=== PATIENT | female | born 1980 | race Caucasian/White ===

== ENCOUNTER 2016-12-24 18:09 | Emergency (ER) | payer SELFPAY ==
--- NOTE | ~2016-12-24 | ER ---
PATIENT'S NAME: CHIOMA UPTON [facility] AGE: 36 Y [address] ROOM: [place] [id number] LOCATION: ED ADMIT DATE: 12/24/2016 ER/Outpatient Report DISCHARGE DATE: 12/24/2016 FAMILY PHYSICIAN: PHYSICIAN, NO ATTENDING PHYSICIAN: Juanita Watters Time of Arrival: 1809 hours. Time of Evaluation: 1835 hours. CHIEF COMPLAINT: Right foot and ankle injury and left toe injury. HISTORY OF PRESENT ILLNESS: This is a 36-year-old female, who presents to the ER, who states that she injured her feet today around 1:30 this afternoon. The patient states she was skydiving and the wind caught their parachute. She was strapped onto instructor dramatic arts as well. She states when they hit the ground, she hit her feet hard to the ground and injured both of her feet. She states that she bruised her second and third toes on her left foot. She states she is able to move them, but they are little bit tender. She denies other injury to her left foot. On her right lower extremity, she is complaining of some lateral pain to her ankle as well as pain to her right hallux and the ball of her foot. She states it is quite tender. She has been using some ibuprofen and Tylenol for her pain with minimal relief. She denies any back or pelvic pain. ALLERGIES: NO KNOWN ALLERGIES. MEDICATIONS: Ibuprofen. PAST MEDICAL HISTORY: She has had a previous right ankle surgery. SOCIAL HISTORY: Drinks a beer a day. Does smoke. REVIEW OF SYSTEMS: A 10-point review of system was completed and was negative with the exception of those discussed in the HPI. PHYSICAL EXAMINATION: VITAL SIGNS: Blood pressure is 134/81, pulse 84, respirations 16, temperature 97.7 degrees tympanically, and saturations 100% on room air. [place] Coma Score is 15. PATIENT'S NAME: CHIOMA UPTON [facility] AGE: 36 Y [address] ROOM: [place], [place] [address] LOCATION: [facility] ADMIT DATE: 12/24/2016 ER/Outpatient Report DISCHARGE DATE: 12/24/2016 FAMILY PHYSICIAN: PHYSICIAN, NO ATTENDING PHYSICIAN: Juanita Watters GENERAL: Alert, calm, well-developed, 36-year-old, in mild distress. EXTREMITIES: She does have some ecchymosis to her second and third toes on her left foot. There is some slight tenderness with palpation over there. She has no tenderness over her left third metatarsals or calcaneus, no ankle tenderness on her left side. On her right foot and ankle, she does have some swelling and tenderness over her right lateral malleolus. She also has exquisite tenderness over her right hallux and first metatarsal. She does have some swelling there as well. She has good pedal pulses bilaterally to lower extremities. She has full range of motion of all other limbs. LABORATORY DATA: Labs, none were done. X-rays ofthe bilateral feet were done. No fracture was seen into the left foot. Her right foot shows no obvious fracture, but we will have this over- read by Radiology. Her right ankle x-ray shows no obvious fracture. IMPRESSION: 1. Right foot and ankle injury. 2. Left second and third toe injuries. ASSESSMENT AND PLAN: We will place her right foot in CAM walking boot, and we will have her ambulate with crutches. I advised her to ice and elevate all the sore areas. We did give her 2 [place] here in the emergency room for her pain. She states that she does have [place] at home for severe pain as well. We will do ibuprofen as needed, and she should follow up with her primary care physician or orthopedic for followup care. The patient understands and agrees with care. IRENE GUIDRY PA-C FOR MD ZAIDA GONZALEZ/char /[id number] d: 12/24/16 2359 t: 01/01/17 1838, OUTPATIENT REPORT
== END 2016-12-24 19:53 | disposition disaster alternative care site (69) ==
LOC: GMED 18:09
DX: S90.122A Contusion of left lesser toe(s) without damage to nail, initial encounter (principal); S99.921A Unspecified injury of right foot, initial encounter; S99.911A Unspecified injury of right ankle, initial encounter; F17.200 Nicotine dependence, unspecified, uncomplicated; Z98.890 Other specified postprocedural states; Y30.XXXA Falling, jumping or pushed from a high place, undetermined intent, initial encounter; Y93.39 Activity, other involving climbing, rappelling and jumping off; Y99.8 Other external cause status

== ENCOUNTER 2017-04-12 15:44 | Emergency (ER) | payer BC ==
--- NOTE | ~2017-04-12 | ER ---
PATIENT'S NAME: CHIOMA UPTON [facility] AGE: 37 Y [address] ROOM: [place] [address] LOCATION: [facility] ADMIT DATE: 04/12/2017 ER/Outpatient Report DISCHARGE DATE: 04/12/2017 FAMILY PHYSICIAN: PHYSICIAN, NO ATTENDING PHYSICIAN: Dillon Chopra Time of Arrival: 1550. Time of Evaluation: 1558. CHIEF COMPLAINT: Right lower quadrant abdominal pain. HISTORY OF PRESENT ILLNESS: The patient is a 37-year-old female who presents to the emergency department today with a chief complaint of right lower quadrant abdominal pain. She reports this started about 4 hours prior to arrival. She is currently undergoing her menses. Pain is currently 10/10 in severity. Denies any nausea or vomiting. No diarrhea or constipation. No fevers or chills. No urinary frequency, urgency, or painful urination. Last bowel movement was yesterday. No history of similar episodes in the past. PAST MEDICAL HISTORY: None. PAST SURGICAL HISTORY: Right ankle, tubal ligation, and cholecystectomy. SOCIAL HISTORY: The patient smokes 10 cigarettes a day. Drinks alcohol occasionally. Denies illicit drug use. ALLERGIES: NO KNOWN DRUG ALLERGIES. MEDICATIONS: Please see list. PRIMARY CARE DOCTOR: Dr. Workman. REVIEW OF SYSTEMS: All systems are reviewed by myself and negative with the exception of those discussed in HPI and past medical history. PHYSICAL EXAMINATION: PATIENT'S NAME: CHIOMA UPTON [facility] AGE: 37 Y [address] ROOM: [place] [address] LOCATION: [facility] ADMIT DATE: 04/12/2017 ER/Outpatient Report DISCHARGE DATE: 04/12/2017 FAMILY PHYSICIAN: PHYSICIAN, NO ATTENDING PHYSICIAN: Dillon Chopra VITAL SIGNS: Weight 93.3 kg. Blood pressure 135/85, pulse 78, respiratory rate 16, temperature 97.9, oxygen saturation 98% on room air. GENERAL: The patient is a 37-year-old female, who appears her stated age, in no acute distress at this time. HEENT: Head normocephalic, atraumatic. Pupils are equal, round, and reactive to light. NECK: Supple. There is no nuchal rigidity. CARDIOVASCULAR: Regular rate and rhythm. No murmurs, rubs, or gallops. LUNGS: Clear to auscultation bilaterally. No wheezes, rales, or rhonchi. ABDOMEN: Soft. Mild right lower quadrant tenderness to palpation. No rebound, rigidity, or guarding. Positive bowel sounds. MUSCULOSKELETAL: The patient moves all 4 extremities. SKIN: Warm and dry. There are no rashes or lesions noted. LABORATORY DATA AND X-RAYS: CBC is normal. Urinalysis is unremarkable. Urine hCG is negative. CMP is unremarkable. LFTs are normal. CT scan of the abdomen and pelvis with and without IV contrast is obtained. I have discussed the results with the radiologist. Shows mild fatty infiltration. Appendix appears normal. There is no free fluid. IMPRESSION: 1. Acute nonsurgical right lower quadrant abdominal pain. 2. Initial visit. EMERGENCY DEPARTMENT COURSE: The patient brought back to the examination room. Seen and evaluated by myself. IV is established. Laboratory analysis and imaging are obtained as described above. The patient is given a liter of normal saline IV. She is given 30 mg of Toradol IV. The patient's abdominal exam is repeated. She continues to have a nonsurgical abdominal exam at this time. She reports her pain is much improved. I have discussed the results with the patient. I have recommended close followup with her primary care doctor, Dr. Workman, in 2 days. I have written a prescription for Naprosyn. She does not appear to have a surgical abdomen at this time. I have discussed return to care instructions including worsening symptoms or any other concerns to return to the emergency department as soon as possible. The patient is agreeable without further questions at this time. DISPOSITION: The patient discharged to home in good condition. PATIENT'S NAME: CHIOMA UPTON [facility] AGE: 37 Y [address] ROOM: [place], [place] [address] LOCATION: [facility] ADMIT DATE: 04/12/2017 ER/Outpatient Report DISCHARGE DATE: 04/12/2017 FAMILY PHYSICIAN: PHYSICIAN, NO ATTENDING PHYSICIAN: Dillon Chopra DO KJR/char /[id number] d: 04/13/17 0645 t: 04/13/17 1458, OUTPATIENT REPORT
[2017-04-12 16:30] LABS: BASOPHIL % 0.2 %; EOSINOPHIL # 0.1 K/uL (0.0-0.5); EOSINOPHIL % 1.4 %; HEMATOCRIT 42.3 % (33.0-46.0); HEMOGLOBIN 14.6 g/dL (11.0-15.0); IMMATURE GRANULOCYTE % 0.2 %; LYMPHOCYTE # 2.5 K/uL (0.8-4.0); LYMPHOCYTE % 30.1 %; MCH 31.7 pg (27.0-34.0); MCHC 34.5 gm/dL (32.0-36.5); MCV 91.8 fl (83.0-98.0); MONOCYTE # 0.6 K/uL (0.0-1.0); MONOCYTE % 6.8 %; MPV 9.6 fl (9.4-12.4); NEUTROPHIL # (ANC) 5.2 K/uL (1.8-7.8); NEUTROPHIL % 61.3 %; NRBC % 0 /100WBC (0-0.00); PLATELET COUNT 284 K/uL (150-450); RBC 4.61 M/uL (3.50-5.50); RDW-CV 13.1 % (11.9-14.6); WBC 8.4 K/uL (4.0-11.0)
[2017-04-12 16:35] LABS: BILIRUBIN URINE NEGATIVE (NEGATIVE); BLOOD URINE 50 /UL (NEGATIVE); COLOR URINE YELLOW (YELLOW); GLUCOSE URINE NEGATIVE (NEGATIVE); KETONE URINE NEGATIVE (NEGATIVE); LEUKOCYTES URINE NEGATIVE /UL (NEGATIVE); NITRITE URINE NEGATIVE (NEGATIVE); PROTEIN URINE NEGATIVE (NEGATIVE); TURBIDITY URINE CLEAR (CLEAR); UROBILINOGEN URINE NORMAL (NORMAL)
[2017-04-12 16:45] LABS: WBC URINE NEGATIVE #/HPF (NEGATIVE)
[2017-04-12 16:46] LABS: BACTERIA URINE NEGATIVE (NEGATIVE); RBC URINE 0-2 #/HPF (NEGATIVE)
[2017-04-12 16:48] LABS: ALK PHOS 74 IU/L (33-138); ALT 24 IU/L (12-78); ANION GAP 12.1 (10.0-19.0); AST 19 IU/L (10-40); BLOOD UREA NITROGEN 5 mg/dL (6-24); CHLORIDE 109 mMol/L (96-110); CO2 22 mMol/L (22-32); CREATININE 0.7 mg/dL (0.5-1.1); POTASSIUM 4.1 mMol/L (3.7-5.1); SODIUM 139 mMol/L (135-145); TOTAL BILIRUBIN 0.9 mg/dL (0.0-1.5)
== END 2017-04-12 18:05 | disposition disaster alternative care site (69) ==
LOC: GMED 15:44
PROVIDERS: Emergency Medicine
DX: R10.31 Right lower quadrant pain (principal); F17.210 Nicotine dependence, cigarettes, uncomplicated; Z90.49 Acquired absence of other specified parts of digestive tract; Z98.890 Other specified postprocedural states; Z98.51 Tubal ligation status; Z79.899 Other long term (current) drug therapy
CPT/HCPCS: J1885; J7030; Q9967